=== PATIENT | male | born 1980 | race Caucasian/White ===

== ENCOUNTER 2024-07-22 18:28 | Emergency (ER) | payer BC ==
--- NOTE | 2024-07-22 18:55 | ED ---
General Adult HPI - General Source: patient, RN notes reviewed <Steph Cespedes - Last Filed: 07/22/24 18:54> - General Source: RN notes reviewed, old records reviewed Mode of arrival: ambulatory Limitations: no limitations - History of Present Illness -: unknown Severity scale (1-10): 0 Improves with: none Worsens with: none Associated Symptoms: denies other symptoms Treatments Prior to Arrival: none <Moiz Barrett - Last Filed: 07/22/24 22:06> - General Stated complaint: high blood pressure Time Seen by Provider: 07/22/24 18:39 - History of Present Illness Initial comments: Quick note44 year old male with no reported medical history presenting to the emergency department for hypertension. Patient was at his dentist earlier today where it was reported that his blood pressure was 174/117. Patient is asymptomatic. He denies chest pain, heart palpitations, dizziness, lightheadedness. (Steph Cespedes) This is a 44-year-old male to the ER for hypertension. Patient states he was at a dentist appointment earlier today and had significant elevated blood pressure. Patient had no symptoms no headache chest pain shortness of breath or abdominal pain. He comes to the ER as he does not have a primary care currently and would like to at this point have blood pressure control. Last time he saw primary care was greater than 2 years ago when [place]. No recent changes in diet, patient takes no supplements, no medications. (Moiz Fay) - Related Data Previous Rx's Medication Instructions Recorded lisinopriL [Prinivil] 10 mg PO DAILY #60 tab 07/22/24 Allergies Allergy/AdvReac Type Severity Reaction Status Date / Time No Known Allergies Allergy Verified 07/22/24 19:05 Review of Systems ROS Other: All systems not noted in ROS Statement are negative. <Steph Cespedes - Last Filed: 07/22/24 18:54> ROS Other: All systems not noted in ROS Statement are negative. <Moiz Barrett - Last Filed: 07/22/24 22:06> ROS Statement: Those systems with pertinent positive or pertinent negative responses have been documented in the HPI. General Exam <Steph Cespedes - Last Filed: 07/22/24 18:54> General appearance: alert, in no apparent distress Head exam: Present: atraumatic, normocephalic, normal inspection Eye exam: Present: normal appearance, PERRL, EOMI. Absent: scleral icterus, conjunctival injection, periorbital swelling ENT exam: Present: normal exam, mucous membranes moist Neck exam: Present: normal inspection. Absent: tenderness, meningismus, lymphadenopathy Respiratory exam: Present: normal lung sounds bilaterally. Absent: respiratory distress, wheezes, rales, rhonchi, stridor Cardiovascular Exam: Present: regular rate, normal rhythm, normal heart sounds. Absent: systolic murmur, diastolic murmur, rubs, gallop, clicks GI/Abdominal exam: Present: soft, normal bowel sounds. Absent: distended, tenderness, guarding, rebound, rigid Extremities exam: Present: normal inspection, full ROM, normal capillary refill. Absent: tenderness, pedal edema, joint swelling, calf tenderness Back exam: Present: normal inspection Neurological exam: Present: alert, oriented X3, CN II-XII intact Psychiatric exam: Present: normal affect, normal mood Skin exam: Present: warm, dry, intact, normal color. Absent: rash <Moiz Barrett - Last Filed: 07/22/24 22:06> - General Exam Comments Initial Comments: Visual Physical Exam Vital signs reviewed General: Well-appearing, nontoxic, no acute distress. Head: Normocephalic, atraumatic Eyes: PERRLA, EOMI ENT: Airway patent Chest: Nonlabored breathing Skin: No visual rash, normal skin tone Neuro: Alert and oriented 3 Musculoskeletal: No gross abnormalities (Stieler,Steph) Course <Moiz Barrett - Last Filed: 07/22/24 22:06> Vital Signs 07/22/24 07/22/24 19:01 21:23 Temperature 98.7 F 98.8 F Pulse Rate 83 78 Respiratory 20 18 Rate Blood Pressure 195/128 183/117 O2 Sat by Pulse 99 99 Oximetry - Reevaluation(s) Reevaluation #1: 07/22/24 22:05 Medical records reviewed (Moiz Barrett) Reevaluation #2: 07/22/24 22:05 Pressure improved here in the ER patient will be started on new oral Blood pressure medication (Moiz Barrett) Reevaluation #3: 07/22/24 22:05 Patient informed of results questions answered (Moiz Barrett) Medical Decision Making <Steph Cespedes - Last Filed: 07/22/24 18:54> - Lab Data Result diagrams: 07/22/24 20:02 07/22/24 20:02 <Moiz Barrett - Last Filed: 07/22/24 22:06> - Medical Decision Making I completed the quick note portion of this chart signed Steph Cespedes PA-C (Steph Cespedes) 44 male for evaluation of elevated blood pressure. This is new onset hypertension new diagnosis, patient will be started on first-line blood pressure therapy. Patient will be discharged, follow-up with primary care, patient does not have current primary care will be given recommendations (Moiz Barrett) - Lab Data Lab Results 07/22/24 07/22/24 07/22/24 Range/Units 20:02 20:02 20:02 WBC 10.3 (3.8-10.6) k/uL RBC 4.73 (4.30-5.90) m/uL Hgb 15.1 (13.0-17.5) gm/dL Hct 46.1 (39.0-53.0) % MCV 97.3 (80.0-100.0) fL MCH 32.0 (25.0-35.0) pg MCHC 32.9 (31.0-37.0) g/dL RDW 12.8 (11.5-15.5) % Plt Count 267 (150-450) k/uL MPV 7.9 Neutrophils % 73 % Lymphocytes % 17 % Monocytes % 8 % Eosinophils % 1 % Basophils % 0 % Neutrophils # 7.5 (1.3-7.7) k/uL Lymphocytes # 1.7 (1.0-4.8) k/uL Monocytes # 0.8 (0-1.0) k/uL Eosinophils # 0.1 (0-0.7) k/uL Basophils # 0.0 (0-0.2) k/uL PT 11.0 (10.0-12.5) sec INR 1.0 (<1.2) APTT 25.7 (22.0-30.0) sec Sodium 139 (137-145) mmol/L Potassium 4.2 (3.5-5.1) mmol/L Chloride 102 (98-107) mmol/L Carbon Dioxide 26 (22-30) mmol/L Anion Gap 11 mmol/L BUN 15 (9-20) mg/dL Creatinine 0.83 (0.66-1.25) mg/dL Est GFR (CKD-EPI)AfAm >90 (>60 ml/min/1.73 sqM) Est GFR (CKD-EPI)NonAf >90 (>60 ml/min/1.73 sqM) Glucose 98 (74-99) mg/dL Calcium 9.4 (8.4-10.2) mg/dL Magnesium 2.0 (1.6-2.3) mg/dL Total Bilirubin 1.4 H (0.2-1.3) mg/dL AST 28 (17-59) U/L ALT 59 H (4-49) U/L Alkaline Phosphatase 51 (38-126) U/L Troponin I (0.000-0.034) ng/mL Total Protein 7.7 (6.3-8.2) g/dL Albumin 4.7 (3.5-5.0) g/dL 07/22/24 Range/Units 20:02 WBC (3.8-10.6) k/uL RBC (4.30-5.90) m/uL Hgb (13.0-17.5) gm/dL Hct (39.0-53.0) % MCV (80.0-100.0) fL MCH (25.0-35.0) pg MCHC (31.0-37.0) g/dL RDW (11.5-15.5) % Plt Count (150-450) k/uL MPV Neutrophils % % Lymphocytes % % Monocytes % % Eosinophils % % Basophils % % Neutrophils # (1.3-7.7) k/uL Lymphocytes # (1.0-4.8) k/uL Monocytes # (0-1.0) k/uL Eosinophils # (0-0.7) k/uL Basophils # (0-0.2) k/uL PT (10.0-12.5) sec INR (<1.2) APTT (22.0-30.0) sec Sodium (137-145) mmol/L Potassium (3.5-5.1) mmol/L Chloride (98-107) mmol/L Carbon Dioxide (22-30) mmol/L Anion Gap mmol/L BUN (9-20) mg/dL Creatinine (0.66-1.25) mg/dL Est GFR (CKD-EPI)AfAm (>60 ml/min/1.73 sqM) Est GFR (CKD-EPI)NonAf (>60 ml/min/1.73 sqM) Glucose (74-99) mg/dL Calcium (8.4-10.2) mg/dL Magnesium (1.6-2.3) mg/dL Total Bilirubin (0.2-1.3) mg/dL AST (17-59) U/L ALT (4-49) U/L Alkaline Phosphatase (38-126) U/L Troponin I <0.012 (0.000-0.034) ng/mL Total Protein (6.3-8.2) g/dL Albumin (3.5-5.0) g/dL Disposition <Steph Cespedes - Last Filed: 07/22/24 18:54> Is patient prescribed a controlled substance at d/c from ED?: No Time of Disposition: 21:30 <Moiz Barrett - Last Filed: 07/22/24 22:06> Clinical Impression: Hypertension Disposition: HOME SELF-CARE Condition: Good Instructions (If sedation given, give patient instructions): Hypertension (ED) Prescriptions: lisinopriL [Prinivil] 10 mg PO DAILY #60 tab Referrals: Brian Berkowitz MD [STAFF PHYSICIAN] - 1-2 days Yara Torres MD [STAFF PHYSICIAN] - 1-2 days Dangelo Suh DO [STAFF PHYSICIAN] - 1-2 days
[2024-07-22 20:22] LABS: Basophils % (A) 0 %; Eosinophils # (A) 0.1 k/uL (0-0.7); Eosinophils % (A) 1 %; HCT 46.1 % (39.0-53.0); HGB 15.1 gm/dL (13.0-17.5); Lymphocytes # (A) 1.7 k/uL (1.0-4.8); Lymphocytes % (A) 17 %; MCHC 32.9 g/dL (31.0-37.0); MCV 97.3 fL (80.0-100.0); Mean Platelet Volume 7.9; Monocytes # (A) 0.8 k/uL (0-1.0); Monocytes % (A) 8 %; Neutrophils # (A) 7.5 k/uL (1.3-7.7); Neutrophils % (A) 73 %; Platelet Count 267 k/uL (150-450); RBC 4.73 m/uL (4.30-5.90); RDW 12.8 % (11.5-15.5); WBC 10.3 k/uL (3.8-10.6)
[2024-07-22 20:26] LABS: ALT 59 U/L (4-49); AST 28 U/L (17-59); African American GFR (CKD) >90 (>60 ml/min/1.73 sqM); Albumin 4.7 g/dL (3.5-5.0); Alkaline Phosphatase 51 U/L (38-126); Anion Gap 11 mmol/L; Blood Urea Nitrogen 15 mg/dL (9-20); Calcium 9.4 mg/dL (8.4-10.2); Carbon Dioxide 26 mmol/L (22-30); Chloride 102 mmol/L (98-107); Glucose 98 mg/dL (74-99); Non-African American GFR(CKD) >90 (>60 ml/min/1.73 sqM); Potassium 4.2 mmol/L (3.5-5.1); Sodium 139 mmol/L (137-145); Total Bilirubin 1.4 mg/dL (0.2-1.3); Total Protein 7.7 g/dL (6.3-8.2)
[2024-07-22 20:28] LABS: Partial Thromboplastin Time 25.7 sec (22.0-30.0)
[2024-07-22 21:25] VITALS: RESP 18; TEMP 98.8
[2024-07-22] MEDS: lisinopriL 10 MG TAB PO STA (21:44)
[2024-07-22] MEDS: LABETALOL 5 MG/ML VIAL MDV IVP STA (21:56)
[2024-07-22 22:34] VITALS: BP 153/106; PULSE 90
== END 2024-07-22 22:34 | disposition home or self-care (01) ==
LOC: EC 18:28
DX: I10 Essential (primary) hypertension (principal)
CPT/HCPCS: 36415; 93005; 80053; 83735; 84484; 85025; 85610; 85730; 99283; 96374; J1920